=== PATIENT | male | born 1950 | race Caucasian/White ===

== ENCOUNTER 2017-09-30 08:17 | Emergency (ER) | payer OTHER ==
[~2017-09-30] VITALS: Ht 168.3 cm; Wt 79.1 kg
[2017-09-30 08:22] VITALS: TEMP 37.2; Ht 168.3 cm; Wt 79.1 kg
--- NOTE | 2017-09-30 08:51 | EMERGENCY ROOM VISIT NOTE ---
History Report prepared by Max: Eileen Lindquist Under the Supervision of: Dr. Breezy Bullock M.D. First contact with patient: 08:30 Chief Complaint: REFERRED BY DOCTOR Stated Complaint: ACCUMULATION OF BLOOD IN [id number] History of Present Illness The patient is a 66 year old white male with a past medical history of hypertension who presents to the ED with a cc of intermittent headache beginning several days ago. Positive right sided neck stiffness. Negative numbness, tingling, weakness. He currently rates his discomfort as an 8/10 in severity. The patient states that recently he has been experiencing a headache when he coughs and sneezes. He describes the headache as a shooting pain. The patient states that when he bends over to pick something up his pain worsens. He states that this morning he had an MRI that showed a subarachnoid hemorrhage. The patient denies any recent fall, trauma, or accident. He states that he takes 81 mg of aspirin daily. Source of History: patient Onset: several days ago Position: head Symptom Intensity: 8/10 Timing: intermittent Modifying Factors (Worsening): other (sneezing, coughing, bending over) Associated Symptoms: No weakness, No numbness Note: Associated Symptoms: right sided neck stiffness Review of Systems See HPI for pertinent positives and negatives. A total of ten systems were reviewed and were otherwise negative. Past Medical & Surgical Medical Problems: (1) Hypertension Family History No pertinent family history stated Social History Smoking Status: Former Smoker Marital Status: Housing Status: lives with significant other Occupation Status: retired Current/Historical Medications Scheduled Aspirin (Aspirin Ec), 81 MG PO DAILY Hctz/Losartan (Hyzaar 25MG/100MG), 1 TAB PO DAILY Multivitamin (Multivitamin), 1 TAB PO DAILY Miscellaneous Medications Ibuprofen (Advil), 200 MG PO Turmeric (Curcuma Longa) (Turmeric) Physical Exam Vital Signs Date Time Temp Pulse Resp B/P (MAP) Pulse Ox O2 Delivery O2 Flow Rate FiO2 09/30/17 15:01 79 16 96/54 98 Room Air 09/30/17 13:39 79 16 107/67 98 Room Air 09/30/17 12:07 82 16 109/69 93 Room Air 09/30/17 11:10 82 16 90/72 94 Room Air 09/30/17 10:12 92 09/30/17 10:07 81 18 110/69 94 09/30/17 08:36 106 09/30/17 08:22 37.2 110 17 121/72 97 Room Air Physical Exam GENERAL: Awake, alert, well-appearing, NAD HENT: Normocephalic, atraumatic. EYES: Normal conjunctiva. Sclera non-icteric. NECK: Supple. No nuchal rigidity. FROM. RESPIRATORY: CTAB, no rhonchi, wheezing, crackles CARDIAC: RRR, no MRG ABDOMEN: Soft, NTND, BS+ MSK: No chest wall TTP, no LE edema, tenderness in left wrist without any swelling. NEURO: CN 2-12 intact, 5/5 upper and lower extremity strength, no dysmetria, no drift, good finger to nose, no sensory deficits. SKIN: No rash or jaundice noted. Medical Decision & Procedures ER Provider Diagnostic Interpretation: Radiology results as stated below per my review and radiologist interpretation: MRI OF THE BRAIN WITHOUT CONTRAST CLINICAL HISTORY: New daily persistent headaches COMPARISON STUDY: None. FINDINGS: Sagittal T1, axial diffusion, proton density and T2 weighted axial, coronal FLAIR, and axial T1-weighted images were acquired. There are small bilateral subacute to chronic subdural hematomas measuring 6 mm in thickness. Axial diffusion-weighted images reveal no evidence of acute or subacute infarction. There is no evidence of ventricular dilatation. Proton density T2-weighted and FLAIR images reveal scattered foci of increased T2 signal within the white matter, likely on a small vessel basis. There are no abnormal flow voids. IMPRESSION: 1. Small subacute to chronic bilateral subdural hematomas measuring 6 mm in maximal thickness. 2. No evidence of hydrocephalus. 3. No evidence of acute or subacute infarction Electronically signed by: Edmond Suarez M.D. 09/30/2017 7:17 AM Dictated Date/Time: 09/30/2017 7:02 AM The status of this report is Signed. Draft = Not yet reviewed or approved by Radiologist. Signed = Reviewed and approved by Radiologist. Laboratory Results 09/30/17 08:45 Red Blood Count 4.89, Mean Corpuscular Volume 87.3, Mean Corpuscular Hemoglobin 29.7, Mean Corpuscular Hemoglobin Concent 34.0, Mean Platelet Volume 9.7, Neutrophils (%) (Auto) 75.9, Lymphocytes (%) (Auto) 16.0, Monocytes (%) (Auto) 7.4, Eosinophils (%) (Auto) 0.3, Basophils (%) (Auto) 0.3, Neutrophils # (Auto) 6.55, Lymphocytes # (Auto) 1.38, Monocytes # (Auto) 0.64, Eosinophils # (Auto) 0.03, Basophils # (Auto) 0.03 09/30/17 08:45 Test 09/30/17 08:45 White Blood Count 8.64 K/uL (4.8-10.8) Red Blood Count 4.89 M/uL (4.7-6.1) Hemoglobin 14.5 g/dL (14.0-18.0) Hematocrit 42.7 % (42-52) Mean Corpuscular Volume 87.3 fL (80-100) Mean Corpuscular Hemoglobin 29.7 pg (25-34) Mean Corpuscular Hemoglobin Concent 34.0 g/dl (32-36) Platelet Count 182 K/uL (130-400) Mean Platelet Volume 9.7 fL (7.4-10.4) Neutrophils (%) (Auto) 75.9 % Lymphocytes (%) (Auto) 16.0 % Monocytes (%) (Auto) 7.4 % Eosinophils (%) (Auto) 0.3 % Basophils (%) (Auto) 0.3 % Neutrophils # (Auto) 6.55 K/uL (1.4-6.5) Lymphocytes # (Auto) 1.38 K/uL (1.2-3.4) Monocytes # (Auto) 0.64 K/uL (0.11-0.59) Eosinophils # (Auto) 0.03 K/uL (0-0.5) Basophils # (Auto) 0.03 K/uL (0-0.2) RDW Standard Deviation 44.2 fL (36.4-46.3) RDW Coefficient of Variation 14.0 % (11.5-14.5) Immature Granulocyte % (Auto) 0.1 % Immature Granulocyte # (Auto) 0.01 K/uL (0.00-0.02) Prothrombin Time 10.4 SECONDS (9.0-12.0) Prothromb Time International Ratio 1.0 (0.9-1.1) Activated Partial Thromboplast Time 25.8 SECONDS (21.0-31.0) Partial Thromboplastin Ratio 1.0 Anion Gap 6.0 mmol/L (3-11) Est Creatinine Clear Calc Drug Dose 70.8 ml/min Estimated GFR () 88.4 Estimated GFR (Non- 76.2 BUN/Creatinine Ratio 19.6 (10-20) Calcium Level 8.8 mg/dl (8.5-10.1) Total Bilirubin 0.4 mg/dl (0.2-1) Direct Bilirubin 0.1 mg/dl (0-0.2) Aspartate Amino Transf (AST/SGOT) 20 U/L (15-37) Alanine Aminotransferase (ALT/SGPT) 38 U/L (12-78) Alkaline Phosphatase 64 U/L (45-117) Total Protein 7.2 gm/dl (6.4-8.2) Albumin 3.7 gm/dl (3.4-5.0) Lipase 140 U/L (73-393) Laboratory results reviewed by me Medications Administered Medications (Trade) Dose Ordered Sig/Clive Route Start Time Stop Time Status Last Admin Dose Admin Levetiracetam 1000 mg/Dextrose 110 ml @ 440 mls/hr ONE ONCE IV 09/30/17 10:45 09/30/17 10:59 DC 09/30/17 11:09 440 MLS/HR ECG Indication: other (headache) Rate (beats per minute): 96 Rhythm: normal sinus Findings: left axis deviation, other (normal intervals, no other STS or TWI) ED Course 0836: The patient was evaluated in room B4B. A complete history and physical exam was performed. 1034: I discussed the patients case with Dr. Matos, [facility]. He has accepted the patient to their facility for further work up and care. He will call back with a bed assignment. 1247: I reevaluated the patient and he is resting comfortably. I updated him on the treatment plan. He will be transferred to [facility]. He is in agreement with the plan. Medical Decision Differential diagnosis: Etiologies such as migraine headache, meningitis, sinusitis, CO exposure, ICH, SAH, infection, tumor, headache, sinus thrombosis, arterial dissection, as well as others were entertained. The patient is a 66 year old white male with a past medical history of hypertension who presents to the ED with a cc of intermittent headache beginning several days ago. Patient was seen and evaluated the bedside. Patient was referred after he had an outpatient MRI that should concern for chronic subdural hemorrhage. Patient states that he has had some chronic headaches that when ongoing for several days. Patient denies infectious symptoms. Patient states that his headache does get worse if he sneezes or coughs. Patient denies any numbness tingling or weakness. Patient does take a baby aspirin. Patient denies any trauma. Patient has a normal neurologic exam. Patient did have blood work completed. Patient was given Keppra for seizure prophylaxis. I did speak with neurosurgery at [facility] who accepted the patient. Patient was pending a bed assignment and ambulance transport. I did reassess the patient was resting comfortably. Patient had no reported headache and no change in mental status. Patient did have a bed assignment and was ending ambulance transport. Medication Reconcilliation Current Medication List: was personally reviewed by me Blood Pressure Screening Patient's blood pressure: Normal blood pressure Blood pressure disposition: Did not require urgent referral Consults Time Called: 1030 Consulting Physician: Dr. Matos, [facility] Returned Call: [phone] I discussed the patients case with Dr. Matos, [facility]. He has accepted the patient to their facility for further work up and care. He will call back with a bed assignment. Impression Primary Impression: SDH (subdural hematoma) Additional Impression: Headache Critical Care I have personally spent greater than 35 minutes of critical care time in the direct management of this patient. This includes bedside care, interpretation of diagnostic studies, and testing, discussion with consultants, patient, and family members, and other required patient management activities. This 35 minutes is in excess of all separately billable procedures. Scribe Attestation The scribe's documentation has been prepared under my direction and personally reviewed by me in its entirety. I confirm that the note above accurately reflects all work, treatment, procedures, and medical decision making performed by me. Departure Information Dispostion Transfer Acute Care Facility Referrals Maximo Decker D.O. (PCP) Problem Qualifiers Additional Impression: Headache Headache type: unspecified Headache chronicity pattern: chronic headache Intractability: not intractable Qualified Codes: R51 - Headache
[2017-09-30 08:59] LABS: BASO % 0.3 %; BASO ABS # 0.03 K/uL (0-0.2); COMPLETE YES; EOS % 0.3 %; HEMATOCRIT 42.7 % (42-52); IG% 0.1 %; LYMPH ABS # 1.38 K/uL (1.2-3.4); MEAN CELL VOLUME 87.3 fL (80-100); MEAN CORPUSCULAR HEMOGLOBIN 29.7 pg (25-34); MEAN PLATELET VOLUME 9.7 fL (7.4-10.4); MONO % 7.4 %; NEUT % 75.9 %; PLATELET COUNT 182 K/uL (130-400); RED BLOOD COUNT 4.89 M/uL (4.7-6.1); WHITE BLOOD COUNT 8.64 K/uL (4.8-10.8)
[2017-09-30 09:08] LABS: PROTHROMBIN TIME (PATIENT) 10.4 SECONDS (9.0-12.0)
[2017-09-30 09:15] LABS: BUN/CREATININE RATIO 19.6 (10-20); CALCIUM 8.8 mg/dl (8.5-10.1); CREATININE 1.02 mg/dl (0.60-1.40); POTASSIUM 3.8 mmol/L (3.5-5.1)
[2017-09-30] MEDS ORDERED: MULT-506 PO (09:20)
[2017-09-30] MEDS ORDERED: ASPI81TA28 PO (09:20)
[2017-09-30] MEDS ORDERED: TURM1CAP2 (09:20)
[2017-09-30] MEDS ORDERED: IBUP-1050 PO (09:20)
[2017-09-30] MEDS ORDERED: HYZ/10015 PO (09:20)
[2017-09-30] MEDS ORDERED: LEVETIRACETAM IV 1,000 MG in DEXTROSE 5% 100ML 100 ML IV ONE (10:45)
[2017-09-30 15:45] VITALS: BP 104/69; PULSE 70; O2SAT 98
== END 2017-09-30 16:37 | disposition short-term general hospital (02) ==
LOC: C.EDB 08:26
DX: S06.5X0A Traumatic subdural hemorrhage without loss of consciousness, initial encounter (principal); X58.XXXA Exposure to other specified factors, initial encounter; R51 Headache; I10 Essential (primary) hypertension; Z87.891 Personal history of nicotine dependence; Z79.82 Long term (current) use of aspirin

== ENCOUNTER → 2017-09-30 | Outpatient (CLI) | payer OTHER ==
[~2017-09-30] MED LIST: ASPI81TA28 PO; HYZ/10015 PO; IBUP-1050 PO; MULT-506 PO; TURM1CAP2
--- NOTE | 2017-09-30 07:19 | DIAGNOSTIC IMAGING REPORT ---
MRI OF THE BRAIN WITHOUT CONTRAST CLINICAL HISTORY: New daily persistent headaches COMPARISON STUDY: None. FINDINGS: Sagittal T1, axial diffusion, proton density and T2 weighted axial, coronal FLAIR, and axial T1-weighted images were acquired. There are small bilateral subacute to chronic subdural hematomas measuring 6 mm in thickness. Axial diffusion-weighted images reveal no evidence of acute or subacute infarction. There is no evidence of ventricular dilatation. Proton density T2-weighted and FLAIR images reveal scattered foci of increased T2 signal within the white matter, likely on a small vessel basis. There are no abnormal flow voids. IMPRESSION: 1. Small subacute to chronic bilateral subdural hematomas measuring 6 mm in maximal thickness. 2. No evidence of hydrocephalus. 3. No evidence of acute or subacute infarction Electronically signed by: Emdond Suarez M.D. 09/30/2017 7:17 AM Dictated Date/Time: 09/30/2017 7:02 AM
== END | disposition home or self-care (01) ==
LOC: C.MRI 06:09
PROVIDERS: ATTEND Internal Medicine
DX: G44.52 New daily persistent headache (NDPH) (principal); I10 Essential (primary) hypertension